=== PATIENT | female | born 1980 | race Caucasian/White ===

== ENCOUNTER 2016-05-03 21:08 | Emergency (ER) | payer OTHER ==
[~2016-05-03] VITALS: Ht 162.6 cm; Wt 82.1 kg
[~2016-05-03 21:08] MED LIST: ANTIVERT 25MG25 MG PO; ATIVAN 0.50.5 MG/TAB PO; ATIVAN0.5 MG PO; AURALGAN EAR DR15 ML OT; BACTRIM DS 8001 TAB PO; BUSPIRONE HCL7.5 MG PO; CALCIUM CARBON500 M1 PO; CEFTIN500 MG PO; CELEXA20 MG PO; CELEXA40 MG PO; CEPHALEXIN500 M1 PO; CIPRO 500MG TA500 MG PO; CITALOPRAM40 MG PO; CLINDAMYCIN PO; CYMBALTA 30MG30 MG PO; DEPAKOTE ER500 MG PO; DESYREL 50MG50 MG PO; DEXILANT60 MG PO; DOXYCYCLINE 10100 MG PO; FLAGYL500 MG PO; FLEXERIL 1010 MG/TAB PO; GABAPENTIN300 MG PO; HYDROCODONE/APAP; KLONOPIN 0.5MG0.5 MG PO; KLONOPIN WAFER0.5 MG PO; LAMICTAL 100MG100 MG PO; LAMICTAL 25MG T25 MG PO; LAMICTAL150 MG PO; LAMICTAL200 MG PO; LEVAQUIN 5500 MG/TA1 PO; LEXAPRO 10MG10 MG PO; LOPRESSOR 550 MG/TAB PO; LORTAB 5/500 501 TAB PO; MERIBIN5 MG PO; NAPROSYN500 MG PO; NEURONTIN300 MG/CAP PO; NORCO 325 MG-51 TAB PO; OMNICEF 300MG300 MG PO; PENICILLIN250 MG PO; PERCOCET 325 MG1 TA2 PO; PHENERGAN 25 TA25 MG PO; PHENERGAN25 MG RC; POTASSIUM99 MG PO; PRENATAL VITAMI1 TA5 PO; PRILOSEC 20MG20 MG PO; PROVENTIL0.09 MG/A1 IH; PYRIDIUM200 M1 PO; RELPAX20 MG PO; TYLENOL 500MG500 MG PO; VALIUM5 MG PO; VIIBRYD10 MG PO; VIT B COMPLEX; VITAMIN D1000 IU PO; VITAMIN D32000 IU PO; WELLBUTRIN PO; XANAX0.25 MG PO; ZOFRAN 4MG T4 MG/TAB PO
[2016-05-03 21:25] VITALS: TEMP 98.6
[2016-05-03] MEDS ORDERED: KLONOPIN WAFE0.25 MG PO (21:54)
[2016-05-03 23:10] VITALS: BP 131/90; PULSE 91
== END 2016-05-03 23:10 | disposition home or self-care (01) ==
LOC: COL.ER 21:08
DX: M54.5 Low back pain (principal)
CPT/HCPCS: J1170; J3010

== ENCOUNTER → 2016-05-10 | Outpatient (CLI) | payer OTHER ==
[~2016-05-10] MED LIST changes: +ALBUTEROL0.83 MG/ML IH; +AMOXICILLIN 50500 MG PO; +CARAFATE 1GM1 G PO; +KLONOPIN WAFE0.25 MG PO; +MAGCITRATE PO; +MIRALAX PA17 GM/Dose PO; +NEB MC; +NEURONTIN600 MG/TAB PO; +PREDNISONE20 MG PO; +PRINIVIL5 MG PO; +PROAIR HFA0.09 MG/AC IH; +PROBIOTICA100 Milli1 PO; +ZITHROMAX Z PA250 MG PO
== END ==
LOC: BHSO 10:07
DX: F31.11 Bipolar disorder, current episode manic without psychotic features, mild (principal)

== ENCOUNTER 2016-05-14 18:23 | Emergency (ER) | payer OTHER ==
[~2016-05-14] VITALS: Ht 162.6 cm; Wt 81.8 kg
[~2016-05-14 18:23] MED LIST changes: -ALBUTEROL0.83 MG/ML IH; -AMOXICILLIN 50500 MG PO; -CARAFATE 1GM1 G PO; -MAGCITRATE PO; -MIRALAX PA17 GM/Dose PO; -NEB MC; -NEURONTIN600 MG/TAB PO; -PREDNISONE20 MG PO; -PRINIVIL5 MG PO; -PROAIR HFA0.09 MG/AC IH; -PROBIOTICA100 Milli1 PO; -ZITHROMAX Z PA250 MG PO
[2016-05-14 18:30] VITALS: TEMP 98.6
[2016-05-14 20:44] VITALS: BP 167/97; PULSE 96
== END 2016-05-14 21:00 | disposition home or self-care (01) ==
LOC: COL.ER 18:23
DX: M54.5 Low back pain (principal); G89.29 Other chronic pain
CPT/HCPCS: J1170; J2405; J2550

== ENCOUNTER → 2016-05-16 | Outpatient (CLI) | payer OTHER ==
[~2016-05-16] MED LIST changes: +ALBUTEROL0.83 MG/ML IH; +AMOXICILLIN 50500 MG PO; +CARAFATE 1GM1 G PO; +MAGCITRATE PO; +MIRALAX PA17 GM/Dose PO; +NEB MC; +NEURONTIN600 MG/TAB PO; +PREDNISONE20 MG PO; +PRINIVIL5 MG PO; +PROAIR HFA0.09 MG/AC IH; +PROBIOTICA100 Milli1 PO; +ZITHROMAX Z PA250 MG PO
== END ==
LOC: BHSO 08:37
DX: F43.10 Post-traumatic stress disorder, unspecified (principal)

== ENCOUNTER → 2016-05-23 | Outpatient (CLI) | payer OTHER | LOC: BHSO 11:13 | DX: F31.81 Bipolar II disorder (principal) ==

== ENCOUNTER → 2016-05-31 | Outpatient (CLI) | payer OTHER | LOC: BHSO 11:19 | DX: F31.31 Bipolar disorder, current episode depressed, mild (principal) ==

== ENCOUNTER 2016-06-06 19:49 | Emergency (ER) | payer OTHER ==
[~2016-06-06] VITALS: Ht 162.6 cm; Wt 81.8 kg
[~2016-06-06 19:49] MED LIST changes: -ALBUTEROL0.83 MG/ML IH; -AMOXICILLIN 50500 MG PO; -CARAFATE 1GM1 G PO; -MAGCITRATE PO; -MIRALAX PA17 GM/Dose PO; -NEB MC; -NEURONTIN600 MG/TAB PO; -PREDNISONE20 MG PO; -PRINIVIL5 MG PO; -PROAIR HFA0.09 MG/AC IH; -PROBIOTICA100 Milli1 PO; -ZITHROMAX Z PA250 MG PO
[2016-06-06 19:55] VITALS: TEMP 98.3
[2016-06-06 20:28] LABS: BASO # 0.1 (0.0-0.2); BASO % 0.4 % (0.0-2.0); EOS # 0.2 (0.0-0.7); EOS % 1.2 % (0-4.0); GRAN # 7.2 (1.4-6.5); GRAN % 58.1 % (42.2-75.2); HEMATOCRIT 45.2 % (37.0-47.0); HEMOGLOBIN 15.4 g/dl (12.5-16.0); LYMPH % 32.1 % (20.0-51.0); MEAN CELL VOLUME 88 fl (80.0-100.0); MEAN CORPUSCULAR HEMOGLOBIN 30 pg (27.0-31.0); MEAN CORPUSCULAR HGB CONC 34 g/dl (33.0-37.0); MEAN PLATELET VOLUME 8.7 fl (7.4-10.4); MONO % 7.9 % (1.7-9.3); PLATELET COUNT 347 K/mm3 (130-400); RED BLOOD COUNT 5.16 M/mm3 (4.10-5.30); REDCELL DISTRIBUTION WIDTH-CV 12.1 % (11.5-14.5); WHITE BLOOD COUNT 12.3 K/mm3 (4.8-10.8)
[2016-06-06 20:38] LABS: ALBUMIN 3.9 gm/dL (3.5-5.0); BILIRUBIN,TOTAL 0.8 mg/dL (0.0-1.0); CALCIUM 8.9 mg/dL (8.4-10.2); CREATININE, serum 0.79 mg/dL (0.52-1.25); POTASSIUM 3.1 mmol/L (3.4-5.0); TOTAL PROTEIN 7.1 gm/dL (6.4-8.2)
[2016-06-06] MEDS ORDERED: PREDNISONE20 MG PO (21:09)
[2016-06-06] MEDS ORDERED: LEVAQUIN 5500 MG/TA1 PO (21:09)
[2016-06-06 21:40] VITALS: BP 150/96; PULSE 99
== END 2016-06-06 21:50 | disposition home or self-care (01) ==
LOC: COL.ER 19:49
PROVIDERS: Family Medicine
DX: J18.9 Pneumonia, unspecified organism (principal); J20.9 Acute bronchitis, unspecified; F17.210 Nicotine dependence, cigarettes, uncomplicated
CPT/HCPCS: J0696; J2405; J2930

== ENCOUNTER 2016-06-08 15:19 | Emergency (ER) | payer OTHER ==
[~2016-06-08] VITALS: Ht 162.6 cm; Wt 81.8 kg
[~2016-06-08 15:19] MED LIST changes: +PREDNISONE20 MG PO
[2016-06-08 15:21] VITALS: TEMP 97.9
[2016-06-08] MEDS ORDERED: PERCOCET 325 MG1 TA2 PO (15:26)
[2016-06-08] MEDS ORDERED: PROAIR HFA0.09 MG/AC IH (15:40)
[2016-06-08 17:43] VITALS: BP 148/95; PULSE 96
[2016-06-08] MEDS ORDERED: NEB MC (17:45)
[2016-06-08] MEDS ORDERED: ALBUTEROL0.83 MG/ML IH (17:45)
== END 2016-06-08 17:55 | disposition home or self-care (01) ==
LOC: COL.ER 15:19
DX: J18.9 Pneumonia, unspecified organism (principal); F17.210 Nicotine dependence, cigarettes, uncomplicated
CPT/HCPCS: J1170; J2405; J7030

== ENCOUNTER → 2016-06-18 | Outpatient (CLI) | payer OTHER ==
[~2016-06-18] MED LIST changes: +ALBUTEROL0.83 MG/ML IH; +AMOXICILLIN 50500 MG PO; +CARAFATE 1GM1 G PO; +MAGCITRATE PO; +MIRALAX PA17 GM/Dose PO; +NEB MC; +NEURONTIN600 MG/TAB PO; +PRINIVIL5 MG PO; +PROAIR HFA0.09 MG/AC IH; +PROBIOTICA100 Milli1 PO; +ZITHROMAX Z PA250 MG PO
== END ==
LOC: BHSO 09:07
DX: F31.81 Bipolar II disorder (principal)

== ENCOUNTER → 2016-06-26 | Outpatient (CLI) | payer OTHER | LOC: BHSO 09:32 | DX: F31.31 Bipolar disorder, current episode depressed, mild (principal) ==

== ENCOUNTER → 2016-07-02 | Outpatient (CLI) | payer OTHER | LOC: BHSO 10:04 | DX: F31.81 Bipolar II disorder (principal) ==

== ENCOUNTER → 2016-07-23 | Outpatient (CLI) | payer OTHER | LOC: BHSO 10:56 | DX: F31.31 Bipolar disorder, current episode depressed, mild (principal) ==

== ENCOUNTER → 2016-08-06 | Outpatient (CLI) | payer OTHER | LOC: BHSO 09:56 | DX: F31.81 Bipolar II disorder (principal) ==

== ENCOUNTER → 2016-08-13 | Outpatient (CLI) | payer OTHER | LOC: BHSO 11:03 | DX: F31.81 Bipolar II disorder (principal) ==

== ENCOUNTER 2016-08-29 15:33 | Emergency (ER) | payer OTHER ==
[~2016-08-29] VITALS: Ht 162.6 cm; Wt 84.1 kg
[~2016-08-29 15:33] MED LIST changes: -AMOXICILLIN 50500 MG PO; -CARAFATE 1GM1 G PO; -MAGCITRATE PO; -MIRALAX PA17 GM/Dose PO; -NEURONTIN600 MG/TAB PO; -PRINIVIL5 MG PO; -PROBIOTICA100 Milli1 PO; -ZITHROMAX Z PA250 MG PO
[2016-08-29 15:39] VITALS: TEMP 98
[2016-08-29] MEDS ORDERED: ZITHROMAX Z PA250 MG PO (16:51)
[2016-08-29] MEDS ORDERED: PREDNISONE20 MG PO (16:51)
[2016-08-29 17:01] VITALS: BP 154/91; PULSE 81
== END 2016-08-29 17:01 | disposition home or self-care (01) ==
LOC: COL.ER 15:33
DX: J20.9 Acute bronchitis, unspecified (principal); F17.210 Nicotine dependence, cigarettes, uncomplicated; F31.9 Bipolar disorder, unspecified; F60.3 Borderline personality disorder

== ENCOUNTER 2016-09-13 01:24 | Emergency (ER) | payer OTHER ==
[~2016-09-13] VITALS: Ht 162.6 cm; Wt 84.1 kg
[~2016-09-13 01:24] MED LIST changes: +ZITHROMAX Z PA250 MG PO
[2016-09-13 01:27] VITALS: BP 164/109; TEMP 98.5
[2016-09-13] MEDS ORDERED: AMOXICILLIN 50500 MG PO (01:50)
[2016-09-13 02:05] VITALS: PULSE 87
== END 2016-09-13 02:08 | disposition home or self-care (01) ==
LOC: COL.ER 01:24
DX: K08.89 Other specified disorders of teeth and supporting structures (principal); H92.03 Otalgia, bilateral; R51 Headache

== ENCOUNTER 2016-10-03 09:22 | Emergency (ER) | payer OTHER ==
[~2016-10-03] VITALS: Ht 162.6 cm; Wt 81.8 kg
[~2016-10-03 09:22] MED LIST changes: +AMOXICILLIN 50500 MG PO
[2016-10-03 09:24] VITALS: PULSE 108; TEMP 98.1
[2016-10-03 10:18] LABS: BASO % 0.4 % (0.0-2.0); EOS # 0.1 (0.0-0.7); EOS % 1.6 % (0-4.0); GRAN % 62.8 % (42.2-75.2); HEMATOCRIT 44.8 % (37.0-47.0); HEMOGLOBIN 15.6 g/dl (12.5-16.0); LYMPH # 2.3 (1.2-3.4); LYMPH % 28.6 % (20.0-51.0); MEAN CELL VOLUME 86 fl (80.0-100.0); MEAN CORPUSCULAR HEMOGLOBIN 30 pg (27.0-31.0); MEAN CORPUSCULAR HGB CONC 35 g/dl (33.0-37.0); MONO # 0.5 (0.1-0.6); MONO % 6.3 % (1.7-9.3); PLATELET COUNT 338 K/mm3 (130-400); RED BLOOD COUNT 5.23 M/mm3 (4.10-5.30); REDCELL DISTRIBUTION WIDTH-CV 11.7 % (11.5-14.5)
[2016-10-03 10:29] LABS: ADJUSTED CALCIUM 9.2 mg/dL (8.4-10.2); ALANINE AMINOTRANSFERASE 22 U/L (9-52); ALBUMIN 4.3 gm/dL (3.5-5.0); ALKALINE PHOSPHATASE 60 U/L (50-136); ANION GAP 8 mmol/L (7-16); BILIRUBIN,TOTAL 0.6 mg/dL (0.0-1.0); BLOOD UREA NITROGEN 6 mg/dL (7-17); CALCIUM 9.4 mg/dL (8.4-10.2); CARBON DIOXIDE 28 mmol/L (22-30); CHLORIDE 103 mmol/L (98-107); GLUCOSE 86 mg/dL (74-106); LIPASE 76 U/L (23-300); POTASSIUM 3.8 mmol/L (3.4-5.0); SODIUM 138 mmol/L (137-145); TOTAL PROTEIN 7.5 gm/dL (6.4-8.2)
[2016-10-03 10:36] LABS: C-REACTIVE PROTEIN < 0.5 mg/dL (0.0-0.9)
[2016-10-03] MEDS ORDERED: NORCO 325 MG-51 TAB PO (13:00)
[2016-10-03 13:27] VITALS: BP 137/98
== END 2016-10-03 13:28 | disposition home or self-care (01) ==
LOC: COL.ER 09:22
PROVIDERS: Nurse Practitioner
DX: R10.11 Right upper quadrant pain (principal); F41.9 Anxiety disorder, unspecified; F31.9 Bipolar disorder, unspecified
CPT/HCPCS: J1885; J2405; J3010; J7030

== ENCOUNTER 2016-10-15 01:46 | Emergency (ER) | payer OTHER ==
[~2016-10-15] VITALS: Ht 162.6 cm; Wt 81.8 kg
[2016-10-15 01:52] VITALS: TEMP 98.7
[2016-10-15] MEDS ORDERED: PROBIOTICA100 Milli1 PO (01:59)
[2016-10-15 02:33] LABS: BASO # 0.1 (0.0-0.2); BASO % 0.5 % (0.0-2.0); EOS # 0.2 (0.0-0.7); EOS % 1.4 % (0-4.0); GRAN % 62.9 % (42.2-75.2); HEMATOCRIT 44.6 % (37.0-47.0); HEMOGLOBIN 15.7 g/dl (12.5-16.0); LYMPH # 3.4 (1.2-3.4); LYMPH % 27.2 % (20.0-51.0); MEAN CELL VOLUME 86 fl (80.0-100.0); MEAN CORPUSCULAR HEMOGLOBIN 30 pg (27.0-31.0); MEAN CORPUSCULAR HGB CONC 35 g/dl (33.0-37.0); MEAN PLATELET VOLUME 8.7 fl (7.4-10.4); MONO % 7.8 % (1.7-9.3); PLATELET COUNT 343 K/mm3 (130-400); RED BLOOD COUNT 5.21 M/mm3 (4.10-5.30); REDCELL DISTRIBUTION WIDTH-CV 11.8 % (11.5-14.5); WHITE BLOOD COUNT 12.6 K/mm3 (4.8-10.8)
[2016-10-15 02:45] LABS: ADJUSTED CALCIUM 9.2 mg/dL (8.4-10.2); ALANINE AMINOTRANSFERASE 35 U/L (9-52); ALBUMIN 4.3 gm/dL (3.5-5.0); ALKALINE PHOSPHATASE 56 U/L (50-136); ANION GAP 10 mmol/L (7-16); BILIRUBIN,TOTAL 0.6 mg/dL (0.0-1.0); BLOOD UREA NITROGEN 7 mg/dL (7-17); CALCIUM 9.4 mg/dL (8.4-10.2); CARBON DIOXIDE 25 mmol/L (22-30); CHLORIDE 103 mmol/L (98-107); CREATININE, serum 0.79 mg/dL (0.52-1.25); GLUCOSE 87 mg/dL (74-106); LIPASE 108 U/L (23-300); POTASSIUM 3.5 mmol/L (3.4-5.0); SODIUM 138 mmol/L (137-145); TOTAL PROTEIN 7.7 gm/dL (6.4-8.2)
[2016-10-15 02:47] LABS: C-REACTIVE PROTEIN < 0.5 mg/dL (0.0-0.9)
[2016-10-15 02:58] LABS: PH 5 (5-8); URINE APPEARANCE Clear; URINE BACTERIA Rare /hpf; URINE BILIRUBIN Negative (NEGATIVE); URINE BLOOD Negative (NEGATIVE); URINE COLOR Yellow; URINE GLUCOSE Negative (NEGATIVE); URINE KETONE Negative (NEGATIVE); URINE UROBILINOGEN Negative (NEGATIVE); URINE WBC 0-2 /hpf
[2016-10-15] MEDS ORDERED: MIRALAX PA17 GM/Dose PO (03:47)
[2016-10-15 04:21] VITALS: BP 160/100; PULSE 91
== END 2016-10-15 04:21 | disposition home or self-care (01) ==
LOC: COL.ER 01:46
PROVIDERS: Emergency Medicine
DX: R10.11 Right upper quadrant pain (principal); R10.13 Epigastric pain; R11.0 Nausea; R63.0 Anorexia; R10.31 Right lower quadrant pain; F32.9 Major depressive disorder, single episode, unspecified
CPT/HCPCS: J1170; J2405; J7030; Q9967

== ENCOUNTER 2016-10-21 20:00 | Emergency (ER) | payer OTHER ==
[~2016-10-21] VITALS: Ht 162.6 cm; Wt 81.8 kg
[~2016-10-21 20:00] MED LIST changes: +MIRALAX PA17 GM/Dose PO; +PROBIOTICA100 Milli1 PO
[2016-10-21 20:03] VITALS: BP 160/102; TEMP 98.9
[2016-10-21 20:39] LABS: BASO % 0.4 % (0.0-2.0); EOS # 0.2 (0.0-0.7); EOS % 2.5 % (0-4.0); GRAN # 5.4 (1.4-6.5); GRAN % 58.5 % (42.2-75.2); HEMATOCRIT 47.2 % (37.0-47.0); HEMOGLOBIN 16.4 g/dl (12.5-16.0); MEAN CELL VOLUME 86 fl (80.0-100.0); MEAN CORPUSCULAR HEMOGLOBIN 30 pg (27.0-31.0); MEAN CORPUSCULAR HGB CONC 35 g/dl (33.0-37.0); MEAN PLATELET VOLUME 8.6 fl (7.4-10.4); MONO # 0.6 (0.1-0.6); MONO % 6.3 % (1.7-9.3); PLATELET COUNT 362 K/mm3 (130-400); RED BLOOD COUNT 5.49 M/mm3 (4.10-5.30); REDCELL DISTRIBUTION WIDTH-CV 11.6 % (11.5-14.5); WHITE BLOOD COUNT 9.3 K/mm3 (4.8-10.8)
[2016-10-21 20:54] LABS: ADJUSTED CALCIUM 9.3 mg/dL (8.4-10.2); ALANINE AMINOTRANSFERASE 31 U/L (9-52); ALBUMIN 4.6 gm/dL (3.5-5.0); ALKALINE PHOSPHATASE 59 U/L (50-136); ANION GAP 14 mmol/L (7-16); BILIRUBIN,TOTAL 0.8 mg/dL (0.0-1.0); BLOOD UREA NITROGEN 7 mg/dL (7-17); CALCIUM 9.8 mg/dL (8.4-10.2); CARBON DIOXIDE 25 mmol/L (22-30); CHLORIDE 101 mmol/L (98-107); CREATININE, serum 0.73 mg/dL (0.52-1.25); GLUCOSE 88 mg/dL (74-106); LIPASE 101 U/L (23-300); POTASSIUM 3.8 mmol/L (3.4-5.0); SODIUM 140 mmol/L (137-145); TOTAL PROTEIN 8.2 gm/dL (6.4-8.2)
[2016-10-21 20:56] LABS: C-REACTIVE PROTEIN < 0.5 mg/dL (0.0-0.9)
[2016-10-21 21:26] LABS: PH 7 (5-8); SQUAMOUS EPITHELIAL 0-2 /hpf; URINE APPEARANCE Clear; URINE BACTERIA None Seen /hpf; URINE BILIRUBIN Negative (NEGATIVE); URINE BLOOD 1+ (NEGATIVE); URINE COLOR Straw; URINE GLUCOSE Negative (NEGATIVE); URINE KETONE Negative (NEGATIVE); URINE RBC None Seen /hpf; URINE UROBILINOGEN Negative (NEGATIVE); URINE WBC None Seen /hpf
[2016-10-21] MEDS ORDERED: CARAFATE 1GM1 G PO (21:54)
[2016-10-21 22:07] VITALS: PULSE 87
== END 2016-10-21 22:11 | disposition home or self-care (01) ==
LOC: COL.ER 20:00
PROVIDERS: Emergency Medicine
DX: R10.11 Right upper quadrant pain (principal); F31.9 Bipolar disorder, unspecified
CPT/HCPCS: J1170; J2550; J7030

== ENCOUNTER → 2016-10-25 | Outpatient (CLI) | payer OTHER ==
[~2016-10-25] MED LIST changes: +CARAFATE 1GM1 G PO; +MAGCITRATE PO; +NEURONTIN600 MG/TAB PO; +PRINIVIL5 MG PO
== END ==
LOC: COL.RAD 07:09
DX: R10.11 Right upper quadrant pain (principal)
CPT/HCPCS: A9537

== ENCOUNTER 2016-10-31 04:47 | Emergency (ER) | payer OTHER ==
[~2016-10-31] VITALS: Ht 162.6 cm; Wt 79.5 kg
[~2016-10-31 04:47] MED LIST changes: -MAGCITRATE PO; -NEURONTIN600 MG/TAB PO; -PRINIVIL5 MG PO
[2016-10-31] MEDS ORDERED: MAGCITRATE PO (04:57)
[2016-10-31 04:58] VITALS: TEMP 99.1
[2016-10-31] MEDS ORDERED: NEURONTIN600 MG/TAB PO (04:58)
[2016-10-31] MEDS ORDERED: NORCO 325 MG-51 TAB PO (04:58)
[2016-10-31 06:17] LABS: BASO # 0.1 (0.0-0.2); BASO % 0.5 % (0.0-2.0); EOS # 0.3 (0.0-0.7); EOS % 2.7 % (0-4.0); GRAN # 5.9 (1.4-6.5); GRAN % 59.1 % (42.2-75.2); HEMATOCRIT 44.3 % (37.0-47.0); HEMOGLOBIN 15.5 g/dl (12.5-16.0); LYMPH % 29.8 % (20.0-51.0); MEAN CELL VOLUME 86 fl (80.0-100.0); MEAN CORPUSCULAR HEMOGLOBIN 30 pg (27.0-31.0); MEAN CORPUSCULAR HGB CONC 35 g/dl (33.0-37.0); MEAN PLATELET VOLUME 8.9 fl (7.4-10.4); MONO # 0.8 (0.1-0.6); MONO % 7.5 % (1.7-9.3); PLATELET COUNT 388 K/mm3 (130-400); RED BLOOD COUNT 5.14 M/mm3 (4.10-5.30); REDCELL DISTRIBUTION WIDTH-CV 11.8 % (11.5-14.5)
[2016-10-31 06:29] LABS: ADJUSTED CALCIUM 8.9 mg/dL (8.4-10.2); ALBUMIN 4.5 gm/dL (3.5-5.0); BILIRUBIN,TOTAL 0.6 mg/dL (0.0-1.0); CALCIUM 9.3 mg/dL (8.4-10.2); CREATININE, serum 0.68 mg/dL (0.52-1.25); MAGNESIUM 1.8 mg/dL (1.6-2.3); PHOSPHOROUS 3.1 mg/dL (2.5-4.5); POTASSIUM 3.5 mmol/L (3.4-5.0); TOTAL PROTEIN 7.7 gm/dL (6.4-8.2)
[2016-10-31 08:27] VITALS: BP 127/86; PULSE 99
== END 2016-10-31 08:29 | disposition home or self-care (01) ==
LOC: COL.ER 04:47
PROVIDERS: Emergency Medicine
DX: R51 Headache (principal); F31.9 Bipolar disorder, unspecified; F17.210 Nicotine dependence, cigarettes, uncomplicated
CPT/HCPCS: J1630; J2060; J2405; J7030

== ENCOUNTER 2016-11-12 20:18 | Emergency (ER) | payer OTHER ==
[~2016-11-12] VITALS: Ht 162.6 cm; Wt 79.5 kg
[~2016-11-12 20:18] MED LIST changes: +MAGCITRATE PO; +NEURONTIN600 MG/TAB PO
[2016-11-12 20:26] VITALS: TEMP 98.5
[2016-11-12 20:58] LABS: PH 6 (5-8); URINE APPEARANCE Clear; URINE BACTERIA None Seen /hpf; URINE BILIRUBIN Negative (NEGATIVE); URINE BLOOD Negative (NEGATIVE); URINE COLOR Yellow; URINE GLUCOSE Negative (NEGATIVE); URINE KETONE Negative (NEGATIVE); URINE RBC 0-2 /hpf; URINE WBC 0-2 /hpf
[2016-11-12 21:04] LABS: BASO # 0.1 (0.0-0.2); BASO % 0.5 % (0.0-2.0); EOS # 0.2 (0.0-0.7); EOS % 2.2 % (0-4.0); GRAN # 5.3 (1.4-6.5); GRAN % 55.5 % (42.2-75.2); HEMATOCRIT 45.8 % (37.0-47.0); HEMOGLOBIN 15.6 g/dl (12.5-16.0); LYMPH # 3.3 (1.2-3.4); LYMPH % 34.3 % (20.0-51.0); MEAN CELL VOLUME 87 fl (80.0-100.0); MEAN CORPUSCULAR HEMOGLOBIN 30 pg (27.0-31.0); MEAN CORPUSCULAR HGB CONC 34 g/dl (33.0-37.0); MEAN PLATELET VOLUME 8.7 fl (7.4-10.4); MONO # 0.7 (0.1-0.6); MONO % 7.3 % (1.7-9.3); PLATELET COUNT 371 K/mm3 (130-400); RED BLOOD COUNT 5.24 M/mm3 (4.10-5.30); REDCELL DISTRIBUTION WIDTH-CV 11.9 % (11.5-14.5); WHITE BLOOD COUNT 9.5 K/mm3 (4.8-10.8)
[2016-11-12] MEDS ORDERED: PRINIVIL5 MG PO (21:06)
[2016-11-12 21:17] LABS: ALANINE AMINOTRANSFERASE 29 U/L (9-52); ALBUMIN 4.4 gm/dL (3.5-5.0); ALKALINE PHOSPHATASE 61 U/L (50-136); ANION GAP 9 mmol/L (7-16); BILIRUBIN,TOTAL 0.6 mg/dL (0.0-1.0); BLOOD UREA NITROGEN 7 mg/dL (7-17); CALCIUM 9.3 mg/dL (8.4-10.2); CARBON DIOXIDE 26 mmol/L (22-30); CHLORIDE 102 mmol/L (98-107); CREATININE, serum 0.68 mg/dL (0.52-1.25); GLUCOSE 80 mg/dL (74-106); LIPASE 109 U/L (23-300); SODIUM 138 mmol/L (137-145)
[2016-11-12 21:18] LABS: C-REACTIVE PROTEIN < 0.5 mg/dL (0.0-0.9)
[2016-11-12 22:35] VITALS: BP 142/93; PULSE 82
== END 2016-11-12 22:50 | disposition home or self-care (01) ==
LOC: COL.ER 20:18
PROVIDERS: Nurse Practitioner
DX: R10.11 Right upper quadrant pain (principal); R11.2 Nausea with vomiting, unspecified; R63.0 Anorexia; F32.9 Major depressive disorder, single episode, unspecified; F41.9 Anxiety disorder, unspecified; G89.29 Other chronic pain
CPT/HCPCS: J1170; J2550; J7030

== ENCOUNTER → 2016-11-21 | Outpatient (CLI) | payer OTHER ==
[~2016-11-21] MED LIST changes: +PRINIVIL5 MG PO
== END ==
LOC: BHSO 09:02
DX: F43.10 Post-traumatic stress disorder, unspecified (principal)

== ENCOUNTER → 2016-12-04 | Outpatient (CLI) | payer OTHER ==
[~2016-12-04] MED LIST changes: +ATARAX50 MG PO; +CATAPRES 0.1MG0.1 MG PO; +CILOXAN 5 ML5 ML OD; +CLEOCIN HC150 MG/CAP PO; +CYMBALTA 60MG60 MG PO; +FIORINAL W/CODE1 CA2 PO; +HCTZ12.5TAB PO; +HORIZANT600 MG PO; +LIDODERM 5% PATC1 EA TP; +MEDROL 4MG DOSPA4 MG PO; +MOTRIN 800800 MG/TAB PO; +VOLTAREN 75 DR75 MG PO
== END ==
LOC: BHSO 13:55
DX: F31.32 Bipolar disorder, current episode depressed, moderate (principal)

== ENCOUNTER 2016-12-07 11:47 | Emergency (ER) | payer OTHER ==
[~2016-12-07 11:47] MED LIST changes: -ATARAX50 MG PO; -CATAPRES 0.1MG0.1 MG PO; -CILOXAN 5 ML5 ML OD; -CLEOCIN HC150 MG/CAP PO; -CYMBALTA 60MG60 MG PO; -FIORINAL W/CODE1 CA2 PO; -HCTZ12.5TAB PO; -HORIZANT600 MG PO; -LIDODERM 5% PATC1 EA TP; -MEDROL 4MG DOSPA4 MG PO; -MOTRIN 800800 MG/TAB PO; -VOLTAREN 75 DR75 MG PO
[2016-12-07 11:52] VITALS: BP 134/85; PULSE 114; TEMP 99
[2016-12-07] MEDS ORDERED: KLONOPIN WAFE0.25 MG PO (11:58)
[2016-12-07] MEDS ORDERED: CEPHALEXIN500 M1 PO (12:19)
[2016-12-07] MEDS ORDERED: NORCO 325 MG-51 TAB PO (12:19)
[2017-04-22] MEDS ORDERED: CLEOCIN HC150 MG/CAP PO (20:46)
[2017-04-22] MEDS ORDERED: PERCOCET 325 MG1 TA2 PO (20:46)
== END 2016-12-07 12:37 | disposition home or self-care (01) ==
LOC: COL.ER 11:47
DX: K91.89 Other postprocedural complications and disorders of digestive system (principal); F31.9 Bipolar disorder, unspecified; F41.9 Anxiety disorder, unspecified; Z90.49 Acquired absence of other specified parts of digestive tract

== ENCOUNTER → 2016-12-24 | Outpatient (CLI) | payer OTHER | LOC: BHSO 13:11 | DX: F31.4 Bipolar disorder, current episode depressed, severe, without psychotic features (principal) ==

== ENCOUNTER → 2017-01-02 | Outpatient (CLI) | payer OTHER | LOC: BHSO 08:59 | DX: F31.11 Bipolar disorder, current episode manic without psychotic features, mild (principal) ==

== ENCOUNTER 2017-01-08 15:03 | Emergency (ER) | payer OTHER ==
[~2017-01-08] VITALS: Ht 162.6 cm; Wt 77.3 kg
[2017-01-08 15:06] VITALS: TEMP 99
[2017-01-08 16:21] LABS: PH 6 (5-8); URINE BACTERIA None Seen /hpf; URINE BILIRUBIN Positive (NEGATIVE); URINE BLOOD Negative (NEGATIVE); URINE COLOR Yellow; URINE GLUCOSE Negative (NEGATIVE); URINE KETONE Trace (NEGATIVE); URINE RBC 0-2 /hpf; URINE UROBILINOGEN >=4.0 mg/dL (NEGATIVE)
[2017-01-08 16:22] LABS: URINE APPEARANCE Hazy
[2017-01-08 16:41] VITALS: BP 132/81; PULSE 99
== END 2017-01-08 16:48 | disposition home or self-care (01) ==
LOC: COL.ER 15:03
PROVIDERS: Emergency Medicine
DX: M54.5 Low back pain (principal); I10 Essential (primary) hypertension; F17.210 Nicotine dependence, cigarettes, uncomplicated
CPT/HCPCS: J1170; J2550

== ENCOUNTER 2017-01-10 23:18 | Emergency (ER) | payer OTHER ==
[~2017-01-10] VITALS: Ht 162.6 cm; Wt 74.1 kg
[2017-01-10 23:24] VITALS: TEMP 98.1
[2017-01-11 01:14] VITALS: BP 147/97; PULSE 92
== END 2017-01-11 01:16 | disposition home or self-care (01) ==
LOC: COL.ER 23:18
DX: G89.29 Other chronic pain (principal); M54.9 Dorsalgia, unspecified; R19.7 Diarrhea, unspecified; R11.2 Nausea with vomiting, unspecified; F17.210 Nicotine dependence, cigarettes, uncomplicated
CPT/HCPCS: J2550

== ENCOUNTER → 2017-02-11 | Outpatient (CLI) | payer OTHER | LOC: BHSO 13:04 | DX: F31.81 Bipolar II disorder (principal) ==

== ENCOUNTER 2017-02-26 15:11 | Emergency (ER) | payer OTHER ==
[~2017-02-26] VITALS: Ht 162.6 cm; Wt 72.7 kg
[2017-02-26] MEDS ORDERED: PHENERGAN 25 TA25 MG PO (15:48)
[2017-02-26 16:54] VITALS: BP 155/83; PULSE 103; TEMP 98.8
== END 2017-02-26 16:55 | disposition home or self-care (01) ==
LOC: COL.ER 15:11
DX: G43.909 Migraine, unspecified, not intractable, without status migrainosus (principal); M54.9 Dorsalgia, unspecified; G89.29 Other chronic pain; F17.210 Nicotine dependence, cigarettes, uncomplicated
CPT/HCPCS: J2550

== ENCOUNTER → 2017-03-25 | Outpatient (CLI) | payer OTHER | LOC: BHSO 09:07 | DX: F31.81 Bipolar II disorder (principal) ==

== ENCOUNTER → 2017-04-17 | Outpatient (CLI) | payer OTHER ==
[~2017-04-17] MED LIST changes: +CLEOCIN HC150 MG/CAP PO
== END ==
LOC: BHSO 09:06
DX: F31.81 Bipolar II disorder (principal)

== ENCOUNTER → 2017-04-24 | Outpatient (CLI) | payer OTHER | LOC: BHSO 09:05 | DX: F31.31 Bipolar disorder, current episode depressed, mild (principal) ==

== ENCOUNTER → 2017-05-01 | Outpatient (CLI) | payer OTHER | LOC: BHSO 09:09 | DX: F31.31 Bipolar disorder, current episode depressed, mild (principal) ==

== ENCOUNTER 2017-05-07 10:47 | Emergency (ER) | payer OTHER ==
[~2017-05-07] VITALS: Ht 162.6 cm; Wt 81.8 kg
[2017-05-07 10:53] VITALS: TEMP 99.2
[2017-05-07 12:30] LABS: COLLECTION METHOD CLEAN CATCH
[2017-05-07 12:38] LABS: PH 7 (5-8); SQUAMOUS EPITHELIAL 0-2 /hpf; URINE APPEARANCE Clear; URINE BACTERIA None Seen /hpf; URINE BILIRUBIN Negative (NEGATIVE); URINE BLOOD Negative (NEGATIVE); URINE COLOR Straw; URINE GLUCOSE Negative (NEGATIVE); URINE KETONE Negative (NEGATIVE); URINE LEUKOCYTE ESTERASE Negative (NEGATIVE); URINE NITRATE Negative (NEGATIVE); URINE PROTEIN(semi-quant) Negative (NEGATIVE); URINE RBC None Seen /hpf; URINE UROBILINOGEN Negative (NEGATIVE)
[2017-05-07] MEDS ORDERED: FLEXERIL 1010 MG/TAB PO (14:34)
[2017-05-07] MEDS ORDERED: MEDROL 4MG DOSPA4 MG PO (14:49)
[2017-05-07 15:00] VITALS: BP 143/100; PULSE 90
== END 2017-05-07 15:00 | disposition home or self-care (01) ==
LOC: COL.ER 10:47
PROVIDERS: Family Medicine
DX: M48.061 Spinal stenosis, lumbar region without neurogenic claudication (principal)
CPT/HCPCS: J1170; J1885; J2060; J2550

== ENCOUNTER → 2017-05-13 | Outpatient (CLI) | payer OTHER ==
[~2017-05-13] MED LIST changes: +MEDROL 4MG DOSPA4 MG PO
== END ==
LOC: BHSO 10:53
DX: F31.31 Bipolar disorder, current episode depressed, mild (principal)

== ENCOUNTER → 2017-05-29 | Outpatient (CLI) | payer OTHER | LOC: BHSO 09:14 | DX: F31.31 Bipolar disorder, current episode depressed, mild (principal) ==

== ENCOUNTER 2017-06-10 02:54 | Emergency (ER) | payer OTHER ==
[~2017-06-10] VITALS: Ht 162.6 cm; Wt 79.5 kg
[2017-06-10 03:04] VITALS: TEMP 98.6
[2017-06-10] MEDS ORDERED: CYMBALTA 30MG30 MG PO (03:10)
[2017-06-10] MEDS ORDERED: CYMBALTA 60MG60 MG PO (03:11)
[2017-06-10 03:22] LABS: BASO # 0.1 (0.0-0.2); BASO % 0.7 % (0.0-2.0); EOS # 0.5 (0.0-0.7); EOS % 3.5 % (0-4.0); GRAN # 9.2 (1.4-6.5); HEMATOCRIT 46.3 % (37.0-47.0); HEMOGLOBIN 15.9 g/dl (12.5-16.0); LYMPH # 3.5 (1.2-3.4); MEAN CELL VOLUME 87 fl (80.0-100.0); MEAN CORPUSCULAR HEMOGLOBIN 30 pg (27.0-31.0); MEAN CORPUSCULAR HGB CONC 34 g/dl (33.0-37.0); MEAN PLATELET VOLUME 8.5 fl (7.4-10.4); MONO # 1.1 (0.1-0.6); MONO % 7.5 % (1.7-9.3); PLATELET COUNT 399 K/mm3 (130-400); REDCELL DISTRIBUTION WIDTH-CV 11.8 % (11.5-14.5)
[2017-06-10 03:23] LABS: INR 0.9 (0.8-3.0); PROTHROMBIN TIME 10.7 SECONDS (9.7-12.8)
[2017-06-10 03:28] LABS: ALANINE AMINOTRANSFERASE 48 U/L (9-52); ALBUMIN 4.5 gm/dL (3.5-5.0); ALKALINE PHOSPHATASE 79 U/L (50-136); ANION GAP 12 mmol/L (7-16); AST,SGOT 36 U/L (15-37); BILIRUBIN,TOTAL 0.3 mg/dL (0.0-1.0); BLOOD UREA NITROGEN 6 mg/dL (7-17); CALCIUM 8.9 mg/dL (8.4-10.2); CARBON DIOXIDE 29 mmol/L (22-30); CHLORIDE 103 mmol/L (98-107); CREATININE, serum 0.82 mg/dL (0.52-1.25); GLUCOSE 99 mg/dL (74-106); POTASSIUM 3.4 mmol/L (3.4-5.0); SODIUM 144 mmol/L (137-145); TOTAL PROTEIN 7.8 gm/dL (6.4-8.2)
[2017-06-10 03:38] LABS: TROPONIN-I < 0.012 ng/mL (0.000-0.034)
[2017-06-10 04:45] VITALS: BP 151/101; PULSE 93
== END 2017-06-10 04:50 | disposition home or self-care (01) ==
LOC: COL.ER 02:54
PROVIDERS: Emergency Medicine
DX: I10 Essential (primary) hypertension (principal); R07.9 Chest pain, unspecified; G43.909 Migraine, unspecified, not intractable, without status migrainosus; F17.210 Nicotine dependence, cigarettes, uncomplicated; F12.90 Cannabis use, unspecified, uncomplicated; Z90.49 Acquired absence of other specified parts of digestive tract
CPT/HCPCS: J1885; J3010

== ENCOUNTER 2017-06-16 22:00 | Emergency (ER) | payer OTHER ==
[~2017-06-16] VITALS: Ht 162.6 cm; Wt 83.1 kg
[~2017-06-16 22:00] MED LIST changes: +CYMBALTA 60MG60 MG PO
[2017-06-16 22:06] VITALS: TEMP 98.3
[2017-06-16] MEDS ORDERED: MOTRIN 800800 MG/TAB PO (22:30)
[2017-06-16] MEDS ORDERED: FIORINAL W/CODE1 CA2 PO (22:30)
[2017-06-16 23:03] LABS: COLLECTION METHOD CLEAN CATCH
[2017-06-16 23:09] LABS: MUCOUS Present /lpf; PH 6 (5-8); URINE APPEARANCE Hazy; URINE BACTERIA None Seen /hpf; URINE BILIRUBIN Negative (NEGATIVE); URINE BLOOD Negative (NEGATIVE); URINE COLOR Yellow; URINE GLUCOSE Negative (NEGATIVE); URINE KETONE Negative (NEGATIVE); URINE LEUKOCYTE ESTERASE Negative (NEGATIVE); URINE NITRATE Negative (NEGATIVE); URINE PROTEIN(semi-quant) Negative (NEGATIVE); URINE UROBILINOGEN Negative (NEGATIVE)
[2017-06-16] MEDS ORDERED: CATAPRES 0.1MG0.1 MG PO (23:22)
[2017-06-16 23:30] VITALS: BP 168/107; PULSE 80
== END 2017-06-16 23:35 | disposition home or self-care (01) ==
LOC: COL.ER 22:00
PROVIDERS: Emergency Medicine
DX: G43.909 Migraine, unspecified, not intractable, without status migrainosus (principal); J02.9 Acute pharyngitis, unspecified; I10 Essential (primary) hypertension; J45.909 Unspecified asthma, uncomplicated; F32.9 Major depressive disorder, single episode, unspecified; F41.9 Anxiety disorder, unspecified; F17.210 Nicotine dependence, cigarettes, uncomplicated; F12.90 Cannabis use, unspecified, uncomplicated; Z90.49 Acquired absence of other specified parts of digestive tract
CPT/HCPCS: J1885; J2550

== ENCOUNTER 2017-06-19 18:24 | Emergency (ER) | payer OTHER ==
[~2017-06-19] VITALS: Ht 162.6 cm; Wt 81.8 kg
[~2017-06-19 18:24] MED LIST changes: +CATAPRES 0.1MG0.1 MG PO; +FIORINAL W/CODE1 CA2 PO; +MOTRIN 800800 MG/TAB PO
[2017-06-19 18:26] VITALS: TEMP 99.2
[2017-06-19 19:02] LABS: BASO # 0.1 (0.0-0.2); BASO % 0.5 % (0.0-2.0); EOS # 0.3 (0.0-0.7); EOS % 3.2 % (0-4.0); GRAN # 5.6 (1.4-6.5); GRAN % 59.8 % (42.2-75.2); HEMATOCRIT 43.8 % (37.0-47.0); HEMOGLOBIN 15.1 g/dl (12.5-16.0); LYMPH # 2.7 (1.2-3.4); MEAN CELL VOLUME 88 fl (80.0-100.0); MEAN CORPUSCULAR HEMOGLOBIN 30 pg (27.0-31.0); MEAN CORPUSCULAR HGB CONC 35 g/dl (33.0-37.0); MEAN PLATELET VOLUME 8.7 fl (7.4-10.4); MONO # 0.7 (0.1-0.6); MONO % 7.3 % (1.7-9.3); PLATELET COUNT 390 K/mm3 (130-400); REDCELL DISTRIBUTION WIDTH-CV 11.8 % (11.5-14.5)
[2017-06-19 19:06] LABS: ALANINE AMINOTRANSFERASE 39 U/L (9-52); ALKALINE PHOSPHATASE 65 U/L (50-136); ANION GAP 13 mmol/L (7-16); AST,SGOT 21 U/L (15-37); BILIRUBIN,TOTAL 0.3 mg/dL (0.0-1.0); BLOOD UREA NITROGEN 4 mg/dL (7-17); CALCIUM 9.1 mg/dL (8.4-10.2); CARBON DIOXIDE 26 mmol/L (22-30); CHLORIDE 104 mmol/L (98-107); GLUCOSE 87 mg/dL (74-106); POTASSIUM 3.6 mmol/L (3.4-5.0); SODIUM 143 mmol/L (137-145); TOTAL PROTEIN 7.4 gm/dL (6.4-8.2)
[2017-06-19 19:17] LABS: TROPONIN-I < 0.012 ng/mL (0.000-0.034)
[2017-06-19] MEDS ORDERED: HCTZ12.5TAB PO (19:40)
[2017-06-19 19:45] LABS: COLLECTION METHOD CLEAN CATCH
[2017-06-19 19:52] LABS: PH 7 (5-8); SQUAMOUS EPITHELIAL 0-2 /hpf; URINE APPEARANCE Clear; URINE BACTERIA None Seen /hpf; URINE BILIRUBIN Negative (NEGATIVE); URINE BLOOD Negative (NEGATIVE); URINE COLOR Straw; URINE GLUCOSE Negative (NEGATIVE); URINE KETONE Negative (NEGATIVE); URINE LEUKOCYTE ESTERASE Negative (NEGATIVE); URINE NITRATE Negative (NEGATIVE); URINE PROTEIN(semi-quant) Negative (NEGATIVE); URINE RBC 0-2 /hpf; URINE UROBILINOGEN Negative (NEGATIVE)
[2017-06-19 19:59] LABS: TRICYCLIC ANTIDEPRESS URINE NEGATIVE
[2017-06-19 20:48] VITALS: BP 148/89; PULSE 91
== END 2017-06-19 20:50 | disposition home or self-care (01) ==
LOC: COL.ER 18:24
PROVIDERS: Emergency Medicine
DX: I10 Essential (primary) hypertension (principal); G89.29 Other chronic pain; R51 Headache; M54.5 Low back pain; R07.9 Chest pain, unspecified
CPT/HCPCS: J1630; J1885; J2060; J2405; J7030

== ENCOUNTER → 2017-06-26 | Outpatient (CLI) | payer OTHER ==
[~2017-06-26] MED LIST changes: +HCTZ12.5TAB PO
== END ==
LOC: BHSO 08:57
DX: F31.31 Bipolar disorder, current episode depressed, mild (principal)

== ENCOUNTER → 2017-07-01 | Outpatient (CLI) | payer OTHER | LOC: MHCPAIN 09:49 | DX: G89.29 Other chronic pain (principal); M47.817 Spondylosis without myelopathy or radiculopathy, lumbosacral region; M54.16 Radiculopathy, lumbar region; M53.3 Sacrococcygeal disorders, not elsewhere classified | CPT/HCPCS: G0463 ==

== ENCOUNTER 2017-07-18 09:45 | Outpatient (RCR) | payer OTHER ==
[2017-08-03] MEDS ORDERED: ATARAX50 MG PO (22:38)
[2017-08-03] MEDS ORDERED: KLONOPIN 0.5MG0.5 MG PO (22:39)
[2017-08-04] MEDS ORDERED: FLEXERIL 1010 MG/TAB PO (00:02)
[2017-08-04] MEDS ORDERED: NORCO 325 MG-51 TAB PO (00:02)
[2017-08-04] MEDS ORDERED: LIDODERM 5% PATC1 EA TP (00:02)
[2017-08-04] MEDS ORDERED: VOLTAREN 75 DR75 MG PO (00:02)
== END 2017-08-13 08:52 | disposition home or self-care (01) ==
LOC: WSPT 09:45
DX: M54.41 Lumbago with sciatica, right side (principal); M54.42 Lumbago with sciatica, left side; G89.29 Other chronic pain

== ENCOUNTER → 2017-07-31 | Outpatient (CLI) | payer OTHER ==
[~2017-07-31] MED LIST changes: +ATARAX50 MG PO; +LIDODERM 5% PATC1 EA TP; +VOLTAREN 75 DR75 MG PO
== END ==
LOC: BHSO 15:29
DX: F43.10 Post-traumatic stress disorder, unspecified (principal)
CPT/HCPCS: G0463

== ENCOUNTER 2017-08-03 22:27 | Emergency (ER) | payer OTHER ==
[~2017-08-03] VITALS: Ht 162.6 cm; Wt 81.8 kg
[~2017-08-03 22:27] MED LIST changes: -ATARAX50 MG PO; -LIDODERM 5% PATC1 EA TP; -VOLTAREN 75 DR75 MG PO
[2017-08-03 22:32] VITALS: TEMP 97.6
[2017-08-03] MEDS ORDERED: ATARAX50 MG PO (22:38)
[2017-08-03] MEDS ORDERED: KLONOPIN 0.5MG0.5 MG PO (22:39)
[2017-08-03 23:12] LABS: COLLECTION METHOD CLEAN CATCH
[2017-08-03 23:29] LABS: MUCOUS Present /lpf; PH 7 (5-8); URINE APPEARANCE Clear; URINE BACTERIA None Seen /hpf; URINE BILIRUBIN Negative (NEGATIVE); URINE BLOOD Negative (NEGATIVE); URINE COLOR Yellow; URINE GLUCOSE Negative (NEGATIVE); URINE KETONE Negative (NEGATIVE); URINE LEUKOCYTE ESTERASE Negative (NEGATIVE); URINE NITRATE Negative (NEGATIVE); URINE PROTEIN(semi-quant) Negative (NEGATIVE); URINE UROBILINOGEN Negative (NEGATIVE)
[2017-08-04] MEDS ORDERED: VOLTAREN 75 DR75 MG PO (00:02)
[2017-08-04] MEDS ORDERED: NORCO 325 MG-51 TAB PO (00:02)
[2017-08-04] MEDS ORDERED: LIDODERM 5% PATC1 EA TP (00:02)
[2017-08-04] MEDS ORDERED: FLEXERIL 1010 MG/TAB PO (00:02)
[2017-08-04 00:32] VITALS: BP 141/91; PULSE 78
== END 2017-08-04 00:30 | disposition home or self-care (01) ==
LOC: COL.ER 22:27
PROVIDERS: Emergency Medicine
DX: M48.56XA Collapsed vertebra, not elsewhere classified, lumbar region, initial encounter for fracture (principal); X50.0XXA Overexertion from strenuous movement or load, initial encounter
CPT/HCPCS: J1885; J2360; J2930; J3010; J7050

== ENCOUNTER → 2017-08-14 | Outpatient (CLI) | payer OTHER ==
[~2017-08-14] MED LIST changes: +ATARAX50 MG PO; +LIDODERM 5% PATC1 EA TP; +VOLTAREN 75 DR75 MG PO
== END ==
LOC: BHSO 11:06
DX: F31.11 Bipolar disorder, current episode manic without psychotic features, mild (principal)

== ENCOUNTER → 2017-09-03 | Outpatient (CLI) | payer OTHER | LOC: BHSO 09:00 | DX: F31.11 Bipolar disorder, current episode manic without psychotic features, mild (principal) ==

== ENCOUNTER 2017-09-16 16:15 | Emergency (ER) | payer OTHER ==
[~2017-09-16] VITALS: Ht 162.6 cm; Wt 81.8 kg
[2017-09-16 16:20] VITALS: BP 153/97; TEMP 99.1
[2017-09-16 18:17] LABS: BASO # 0.1 (0.0-0.2); BASO % 0.5 % (0.0-2.0); EOS # 0.2 (0.0-0.7); EOS % 1.1 % (0-4.0); GRAN % 68.9 % (42.2-75.2); HEMATOCRIT 47.8 % (37.0-47.0); HEMOGLOBIN 16.4 g/dl (12.5-16.0); LYMPH # 2.9 (1.2-3.4); MEAN CELL VOLUME 87 fl (80.0-100.0); MEAN CORPUSCULAR HEMOGLOBIN 30 pg (27.0-31.0); MEAN CORPUSCULAR HGB CONC 34 g/dl (33.0-37.0); MEAN PLATELET VOLUME 8.6 fl (7.4-10.4); MONO % 7.3 % (1.7-9.3); PLATELET COUNT 378 K/mm3 (130-400); REDCELL DISTRIBUTION WIDTH-CV 12.1 % (11.5-14.5)
[2017-09-16 18:27] LABS: ALBUMIN 4.2 gm/dL (3.5-5.0); BILIRUBIN,TOTAL 0.6 mg/dL (0.0-1.0); CALCIUM 9.7 mg/dL (8.4-10.2); CREATININE, serum 0.7 mg/dL (0.52-1.25); TOTAL PROTEIN 8.5 gm/dL (6.4-8.2)
[2017-09-16] MEDS ORDERED: PHENERGAN 25 TA25 MG PO (19:42)
[2017-09-16 20:19] VITALS: PULSE 94
== END 2017-09-16 20:19 | disposition home or self-care (01) ==
LOC: COL.ER 16:15
PROVIDERS: Physician Assistant
DX: G43.909 Migraine, unspecified, not intractable, without status migrainosus (principal); R19.7 Diarrhea, unspecified; R11.10 Vomiting, unspecified; F17.210 Nicotine dependence, cigarettes, uncomplicated; Z90.49 Acquired absence of other specified parts of digestive tract
CPT/HCPCS: J1885; J2550; J7030

== ENCOUNTER 2017-09-28 15:44 | Emergency (ER) | payer SELFPAY ==
[~2017-09-28] VITALS: Ht 162.6 cm; Wt 84.5 kg
[2017-09-28 15:48] VITALS: BP 156/95; TEMP 98.5
[2017-09-28] MEDS ORDERED: PREDNISONE20 MG PO (16:04)
[2017-09-28] MEDS ORDERED: FLEXERIL 1010 MG/TAB PO (16:04)
[2017-09-28 16:48] VITALS: PULSE 98
== END 2017-09-28 16:49 | disposition home or self-care (01) ==
LOC: COL.ER 15:44
DX: M75.91 Shoulder lesion, unspecified, right shoulder (principal); G89.29 Other chronic pain; M25.511 Pain in right shoulder; F17.210 Nicotine dependence, cigarettes, uncomplicated
CPT/HCPCS: J7512

== ENCOUNTER 2017-10-31 00:10 | Emergency (ER) | payer SELFPAY ==
[2017-10-31 00:20] VITALS: TEMP 98.9
[2017-10-31 02:05] VITALS: BP 157/87; PULSE 95
== END 2017-10-31 02:06 | disposition home or self-care (01) ==
LOC: COL.ER 00:10
DX: M54.5 Low back pain (principal); G89.29 Other chronic pain; F17.210 Nicotine dependence, cigarettes, uncomplicated

== ENCOUNTER 2017-12-24 00:44 | Emergency (ER) | payer SELFPAY ==
[~2017-12-24] VITALS: Ht 162.6 cm; Wt 84.1 kg
[2017-12-24 00:48] VITALS: TEMP 98.6
[2017-12-24 01:51] LABS: BASO # 0.1 (0.0-0.2); BASO % 0.5 % (0.0-2.0); EOS # 0.2 (0.0-0.7); EOS % 1.4 % (0-4.0); GRAN # 10.8 (1.4-6.5); GRAN % 70.8 % (42.2-75.2); HEMATOCRIT 47.2 % (37.0-47.0); HEMOGLOBIN 16.3 g/dl (12.5-16.0); LYMPH % 19.7 % (20.0-51.0); MEAN CELL VOLUME 87 fl (80.0-100.0); MEAN CORPUSCULAR HEMOGLOBIN 30 pg (27.0-31.0); MEAN CORPUSCULAR HGB CONC 35 g/dl (33.0-37.0); MEAN PLATELET VOLUME 8.7 fl (7.4-10.4); MONO # 1.1 (0.1-0.6); MONO % 7.1 % (1.7-9.3); PLATELET COUNT 377 K/mm3 (130-400); RED BLOOD COUNT 5.45 M/mm3 (4.10-5.30); REDCELL DISTRIBUTION WIDTH-CV 12.3 % (11.5-14.5)
[2017-12-24 01:56] LABS: ALBUMIN 4.2 gm/dL (3.5-5.0); BILIRUBIN,TOTAL 0.7 mg/dL (0.0-1.0); CALCIUM 9.3 mg/dL (8.4-10.2); CREATININE, serum 0.77 mg/dL (0.52-1.25); POTASSIUM 4.1 mmol/L (3.4-5.0)
[2017-12-24 02:26] LABS: COLLECTION METHOD CLEAN CATCH
[2017-12-24 02:31] LABS: PH 6 (5-8); SQUAMOUS EPITHELIAL 0-2 /hpf; URINE APPEARANCE Clear; URINE BACTERIA None Seen /hpf; URINE BILIRUBIN Negative (NEGATIVE); URINE BLOOD Negative (NEGATIVE); URINE COLOR Yellow; URINE GLUCOSE Negative (NEGATIVE); URINE KETONE Negative (NEGATIVE); URINE LEUKOCYTE ESTERASE Negative (NEGATIVE); URINE NITRATE Negative (NEGATIVE); URINE PROTEIN(semi-quant) Negative (NEGATIVE); URINE RBC 0-2 /hpf; URINE UROBILINOGEN Negative (NEGATIVE)
[2017-12-24 03:24] VITALS: BP 158/113; PULSE 87
== END 2017-12-24 03:27 | disposition home or self-care (01) ==
LOC: COL.ER 00:44
PROVIDERS: Physician Assistant
DX: G43.909 Migraine, unspecified, not intractable, without status migrainosus (principal); M54.5 Low back pain; F17.210 Nicotine dependence, cigarettes, uncomplicated; Z90.49 Acquired absence of other specified parts of digestive tract
CPT/HCPCS: J1885; J7030

== ENCOUNTER 2018-01-03 00:37 | Emergency (ER) | payer SELFPAY ==
[~2018-01-03] VITALS: Ht 162.6 cm; Wt 84.1 kg
[2018-01-03 00:42] VITALS: BP 156/100; TEMP 98.8
[2018-01-03] MEDS ORDERED: CILOXAN 5 ML5 ML OD (03:01)
[2018-01-03 03:15] VITALS: PULSE 87
== END 2018-01-03 03:15 | disposition home or self-care (01) ==
LOC: COL.ER 00:37
DX: G43.909 Migraine, unspecified, not intractable, without status migrainosus (principal); G89.29 Other chronic pain; M54.5 Low back pain; R11.0 Nausea; F17.210 Nicotine dependence, cigarettes, uncomplicated; H57.89 Other specified disorders of eye and adnexa
CPT/HCPCS: J1885; J2550; J7030

== ENCOUNTER 2018-03-02 08:15 | Emergency (ER) | payer SELFPAY ==
[~2018-03-02] VITALS: Ht 162.6 cm; Wt 81.8 kg
[~2018-03-02 08:15] MED LIST changes: +CILOXAN 5 ML5 ML OD
[2018-03-02 08:19] VITALS: BP 169/84; TEMP 97.5
[2018-03-02] MEDS ORDERED: FLEXERIL 1010 MG/TAB PO (08:48)
[2018-03-02] MEDS ORDERED: LIDODERM 5% PATC1 EA TP (08:48)
[2018-03-02] MEDS ORDERED: NORCO 325 MG-51 TAB PO (08:48)
[2018-03-02 09:04] LABS: COLLECTION METHOD CLEAN CATCH
[2018-03-02 09:22] LABS: MUCOUS Present /lpf; PH 5 (5-8); URINE APPEARANCE Hazy; URINE BACTERIA None Seen /hpf; URINE BILIRUBIN Negative (NEGATIVE); URINE BLOOD Negative (NEGATIVE); URINE COLOR Yellow; URINE GLUCOSE Negative (NEGATIVE); URINE KETONE Negative (NEGATIVE); URINE LEUKOCYTE ESTERASE Negative (NEGATIVE); URINE NITRATE Negative (NEGATIVE); URINE PROTEIN(semi-quant) Negative (NEGATIVE); URINE UROBILINOGEN Negative (NEGATIVE)
[2018-03-02 10:32] VITALS: PULSE 110
== END 2018-03-02 10:30 | disposition home or self-care (01) ==
LOC: COL.ER 08:15
PROVIDERS: Emergency Medicine
DX: S39.012A Strain of muscle, fascia and tendon of lower back, initial encounter (principal); X50.0XXA Overexertion from strenuous movement or load, initial encounter
CPT/HCPCS: J1170; J1885

== ENCOUNTER 2018-03-14 17:18 | Emergency (ER) | payer SELFPAY ==
[~2018-03-14] VITALS: Ht 162.6 cm; Wt 81.8 kg
[2018-03-14 17:20] VITALS: BP 141/88; TEMP 99.2
[2018-03-14 18:15] VITALS: PULSE 98
== END 2018-03-14 18:15 | disposition home or self-care (01) ==
LOC: COL.ER 17:18
DX: S93.491A Sprain of other ligament of right ankle, initial encounter (principal); F17.210 Nicotine dependence, cigarettes, uncomplicated; M79.7 Fibromyalgia; X50.0XXA Overexertion from strenuous movement or load, initial encounter; Y92.009 Unspecified place in unspecified non-institutional (private) residence as the place of occurrence of the external cause

== ENCOUNTER 2018-04-01 15:37 | Emergency (ER) | payer SELFPAY ==
[~2018-04-01] VITALS: Ht 162.6 cm; Wt 81.8 kg
[2018-04-01 15:54] VITALS: TEMP 99.2
[2018-04-01] MEDS ORDERED: HORIZANT600 MG PO (16:14)
[2018-04-01] MEDS ORDERED: CYMBALTA 60MG60 MG PO (16:14)
[2018-04-01] MEDS ORDERED: LAMICTAL150 MG PO (16:15)
[2018-04-01 16:52] VITALS: BP 135/82; PULSE 100
== END 2018-04-01 16:55 | disposition home or self-care (01) ==
LOC: COL.ER 15:37
DX: S93.491A Sprain of other ligament of right ankle, initial encounter (principal); J45.909 Unspecified asthma, uncomplicated; I10 Essential (primary) hypertension; F17.210 Nicotine dependence, cigarettes, uncomplicated; F31.9 Bipolar disorder, unspecified; X50.0XXA Overexertion from strenuous movement or load, initial encounter; Y92.009 Unspecified place in unspecified non-institutional (private) residence as the place of occurrence of the external cause

== ENCOUNTER 2018-04-21 23:00 | Emergency (ER) | payer SELFPAY ==
[~2018-04-21] VITALS: Ht 162.6 cm; Wt 81.8 kg
[~2018-04-21 23:00] MED LIST changes: +HORIZANT600 MG PO
[2018-04-21 23:04] VITALS: TEMP 98.7
[2018-04-21 23:35] LABS: BASO # 0.1 (0.0-0.2); BASO % 0.5 % (0.0-2.0); EOS # 0.1 (0.0-0.7); EOS % 1.2 % (0-4.0); GRAN # 6.8 (1.4-6.5); GRAN % 64.6 % (42.2-75.2); HEMATOCRIT 46.5 % (37.0-47.0); HEMOGLOBIN 15.8 g/dl (12.5-16.0); LYMPH # 2.7 (1.2-3.4); LYMPH % 25.2 % (20.0-51.0); MEAN CELL VOLUME 87 fl (80.0-100.0); MEAN CORPUSCULAR HEMOGLOBIN 30 pg (27.0-31.0); MEAN CORPUSCULAR HGB CONC 34 g/dl (33.0-37.0); MEAN PLATELET VOLUME 8.7 fl (7.4-10.4); MONO # 0.9 (0.1-0.6); MONO % 8.1 % (1.7-9.3); PLATELET COUNT 371 K/mm3 (130-400); RED BLOOD COUNT 5.33 M/mm3 (4.10-5.30); REDCELL DISTRIBUTION WIDTH-CV 12.2 % (11.5-14.5)
[2018-04-21 23:50] LABS: ALANINE AMINOTRANSFERASE 48 U/L (9-52); ALBUMIN 4.4 gm/dL (3.5-5.0); ALKALINE PHOSPHATASE 64 U/L (50-136); ANION GAP 10 mmol/L (7-16); AST,SGOT 33 U/L (15-37); BLOOD UREA NITROGEN 7 mg/dL (7-17); CALCIUM 9.2 mg/dL (8.4-10.2); CARBON DIOXIDE 25 mmol/L (22-30); CHLORIDE 102 mmol/L (98-107); CREATININE, serum 0.84 mg/dL (0.52-1.25); GLUCOSE 101 mg/dL (74-106); LIPASE 63 U/L (23-300); POTASSIUM 3.8 mmol/L (3.4-5.0); SODIUM 136 mmol/L (137-145); TOTAL PROTEIN 8.1 gm/dL (6.4-8.2)
[2018-04-21 23:51] LABS: C-REACTIVE PROTEIN < 0.5 mg/dL (0.0-0.9)
[2018-04-22 00:49] LABS: COLLECTION METHOD CLEAN CATCH
[2018-04-22 01:00] LABS: MUCOUS Present /lpf; PH 6 (5-8); SQUAMOUS EPITHELIAL 0-2 /hpf; URINE APPEARANCE Clear; URINE BACTERIA Rare /hpf; URINE BILIRUBIN Negative (NEGATIVE); URINE BLOOD Negative (NEGATIVE); URINE COLOR Yellow; URINE GLUCOSE Negative (NEGATIVE); URINE KETONE Negative (NEGATIVE); URINE LEUKOCYTE ESTERASE Negative (NEGATIVE); URINE NITRATE Negative (NEGATIVE); URINE PROTEIN(semi-quant) Negative (NEGATIVE); URINE RBC 0-2 /hpf; URINE UROBILINOGEN Negative (NEGATIVE)
[2018-04-22] MEDS ORDERED: ZOFRAN 4MG T4 MG/TAB PO (02:03)
[2018-04-22 02:15] VITALS: BP 150/84; PULSE 86
== END 2018-04-22 02:23 | disposition home or self-care (01) ==
LOC: COL.ER 23:00
PROVIDERS: Emergency Medicine
DX: R11.2 Nausea with vomiting, unspecified (principal); R19.7 Diarrhea, unspecified; M79.7 Fibromyalgia; R10.12 Left upper quadrant pain; G43.909 Migraine, unspecified, not intractable, without status migrainosus; F17.210 Nicotine dependence, cigarettes, uncomplicated; Z90.49 Acquired absence of other specified parts of digestive tract
CPT/HCPCS: J2405; J7030

== ENCOUNTER → 2018-05-01 | Emergency (ER) | payer SELFPAY ==
[~2018-05-01] VITALS: Ht 162.6 cm; Wt 81.8 kg
[2018-05-01 15:58] VITALS: TEMP 98.6
[2018-05-01 16:24] LABS: COLLECTION METHOD CLEAN CATCH
[2018-05-01 16:26] LABS: BASO # 0.1 (0.0-0.2); BASO % 0.4 % (0.0-2.0); EOS # 0.1 (0.0-0.7); EOS % 0.5 % (0-4.0); GRAN # 9.1 (1.4-6.5); GRAN % 74.4 % (42.2-75.2); HEMATOCRIT 48.8 % (37.0-47.0); HEMOGLOBIN 16.4 g/dl (12.5-16.0); LYMPH # 2.2 (1.2-3.4); LYMPH % 18.1 % (20.0-51.0); MEAN CELL VOLUME 88 fl (80.0-100.0); MEAN CORPUSCULAR HEMOGLOBIN 29 pg (27.0-31.0); MEAN CORPUSCULAR HGB CONC 34 g/dl (33.0-37.0); MEAN PLATELET VOLUME 8.7 fl (7.4-10.4); MONO # 0.8 (0.1-0.6); MONO % 6.3 % (1.7-9.3); PLATELET COUNT 446 K/mm3 (130-400); RED BLOOD COUNT 5.57 M/mm3 (4.10-5.30); REDCELL DISTRIBUTION WIDTH-CV 12.1 % (11.5-14.5)
[2018-05-01 16:29] LABS: MUCOUS Present /lpf; PH 5 (5-8); URINE APPEARANCE Clear; URINE BACTERIA Rare /hpf; URINE BILIRUBIN Negative (NEGATIVE); URINE BLOOD Negative (NEGATIVE); URINE COLOR Yellow; URINE GLUCOSE Negative (NEGATIVE); URINE KETONE Negative (NEGATIVE); URINE LEUKOCYTE ESTERASE Negative (NEGATIVE); URINE NITRATE Negative (NEGATIVE); URINE PROTEIN(semi-quant) 1+ (NEGATIVE)
[2018-05-01 16:42] LABS: ALBUMIN 4.5 gm/dL (3.5-5.0); BILIRUBIN,TOTAL 0.6 mg/dL (0.0-1.0); CALCIUM 9.6 mg/dL (8.4-10.2); CREATININE, serum 0.75 mg/dL (0.52-1.25); TOTAL PROTEIN 8.3 gm/dL (6.4-8.2)
[2018-05-01 18:31] VITALS: BP 150/102; PULSE 91
== END ==
LOC: COL.ER 15:51
PROVIDERS: Nurse Practitioner
DX: R10.9 Unspecified abdominal pain (principal); I10 Essential (primary) hypertension; F12.90 Cannabis use, unspecified, uncomplicated; M79.7 Fibromyalgia; F32.9 Major depressive disorder, single episode, unspecified; J45.909 Unspecified asthma, uncomplicated; F17.210 Nicotine dependence, cigarettes, uncomplicated; F41.9 Anxiety disorder, unspecified; Z90.49 Acquired absence of other specified parts of digestive tract
CPT/HCPCS: J1885; J2405; J7030; Q9967

== ENCOUNTER → 2018-05-06 | Outpatient (CLI) | payer SELFPAY | LOC: BHSO 09:31 | DX: F43.10 Post-traumatic stress disorder, unspecified (principal) | CPT/HCPCS: G0463 ==

== ENCOUNTER → 2018-05-07 | Outpatient (CLI) | payer SELFPAY | LOC: BHSO 14:07 | DX: F43.10 Post-traumatic stress disorder, unspecified (principal) ==

== ENCOUNTER 2018-06-02 10:26 | Emergency (ER) | payer SELFPAY ==
[~2018-06-02] VITALS: Ht 162.6 cm; Wt 81.8 kg
[2018-06-02 10:36] VITALS: BP 130/82
[2018-06-02] MEDS ORDERED: NORCO 325 MG-51 TAB PO (11:06)
[2018-06-02] MEDS ORDERED: MEDROL 4MG DOSPA4 MG PO (11:06)
[2018-06-02] MEDS ORDERED: LIDODERM 5% PATC1 EA TP (11:22)
[2018-06-02 11:24] VITALS: PULSE 97; TEMP 97.9
== END 2018-06-02 11:24 | disposition home or self-care (01) ==
LOC: COL.ER 10:26
DX: G89.29 Other chronic pain (principal); M54.5 Low back pain; F17.210 Nicotine dependence, cigarettes, uncomplicated; F31.9 Bipolar disorder, unspecified; F41.9 Anxiety disorder, unspecified

== ENCOUNTER 2018-10-12 22:12 | Emergency (ER) | payer SELFPAY ==
[~2018-10-12] VITALS: Ht 162.6 cm; Wt 82.2 kg
[2018-10-12 22:20] VITALS: BP 143/85; TEMP 98.6
[2018-10-12 22:53] LABS: STREP SCREEN NEGATIVE
[2018-10-12] MEDS ORDERED: AMOXICILLIN 50500 MG PO (23:13)
[2018-10-12 23:21] VITALS: PULSE 84
== END 2018-10-12 23:21 | disposition home or self-care (01) ==
LOC: COL.ER 22:12
PROVIDERS: Emergency Medicine
DX: J02.9 Acute pharyngitis, unspecified (principal); F17.210 Nicotine dependence, cigarettes, uncomplicated

== ENCOUNTER 2018-12-09 23:14 | Emergency (ER) | payer SELFPAY ==
[~2018-12-09] VITALS: Ht 162.6 cm; Wt 79.5 kg
[2018-12-09 23:31] VITALS: BP 139/93; TEMP 98.7
[2018-12-10] MEDS ORDERED: ZITHROMAX Z PA250 MG PO (00:24)
[2018-12-10 01:25] VITALS: PULSE 94
== END 2018-12-10 01:25 | disposition home or self-care (01) ==
LOC: COL.ER 23:14
DX: J06.9 Acute upper respiratory infection, unspecified (principal)
CPT/HCPCS: J1100

== ENCOUNTER 2018-12-14 08:26 | Emergency (ER) | payer SELFPAY ==
[~2018-12-14] VITALS: Ht 162.6 cm; Wt 79.5 kg
[2018-12-14 08:32] VITALS: TEMP 98.3
[2018-12-14] MEDS ORDERED: PROAIR HFA0.09 MG/AC IH (09:23)
[2018-12-14] MEDS ORDERED: AMOXICILLIN 50500 MG PO (09:23)
[2018-12-14] MEDS ORDERED: PREDNISONE20 MG PO (09:23)
[2018-12-14 10:18] VITALS: BP 136/86; PULSE 89
== END 2018-12-14 10:19 | disposition home or self-care (01) ==
LOC: COL.ER 08:26
DX: J20.9 Acute bronchitis, unspecified (principal); J01.90 Acute sinusitis, unspecified; F17.210 Nicotine dependence, cigarettes, uncomplicated; F41.9 Anxiety disorder, unspecified; F31.9 Bipolar disorder, unspecified; Z90.89 Acquired absence of other organs
CPT/HCPCS: J7512

== ENCOUNTER 2019-05-20 18:41 | Emergency (ER) | payer SELFPAY ==
[~2019-05-20] VITALS: Ht 162.6 cm; Wt 82.3 kg
[2019-05-20 18:55] VITALS: TEMP 98.9
[2019-05-20 20:23] LABS: COLLECTION METHOD CLEAN CATCH
[2019-05-20 20:35] LABS: MUCOUS Present /lpf; PH 6 (5-8); URINE APPEARANCE Hazy; URINE BACTERIA Rare /hpf; URINE BILIRUBIN Negative (NEGATIVE); URINE BLOOD Negative (NEGATIVE); URINE COLOR Yellow; URINE GLUCOSE Negative (NEGATIVE); URINE KETONE Negative (NEGATIVE); URINE LEUKOCYTE ESTERASE Negative (NEGATIVE); URINE NITRATE Negative (NEGATIVE); URINE PROTEIN(semi-quant) Negative (NEGATIVE); URINE RBC 0-2 /hpf; URINE UROBILINOGEN Negative (NEGATIVE)
[2019-05-20] MEDS ORDERED: TAMIFLU 75MG75 MG PO (21:11)
[2019-05-20 21:37] VITALS: BP 135/90; PULSE 97
== END 2019-05-20 21:37 | disposition home or self-care (01) ==
LOC: COL.ER 18:41
PROVIDERS: Nurse Practitioner
DX: J11.1 Influenza due to unidentified influenza virus with other respiratory manifestations (principal); F32.9 Major depressive disorder, single episode, unspecified; F41.9 Anxiety disorder, unspecified; F17.210 Nicotine dependence, cigarettes, uncomplicated; Z90.89 Acquired absence of other organs; Z79.52 Long term (current) use of systemic steroids
CPT/HCPCS: J7030

== ENCOUNTER → 2019-11-25 | Outpatient (CLI) | payer SELFPAY ==
[~2019-11-25] MED LIST changes: +TAMIFLU 75MG75 MG PO
== END ==
LOC: BHSO 09:21
DX: F43.10 Post-traumatic stress disorder, unspecified (principal)
CPT/HCPCS: G0463

== ENCOUNTER 2020-07-18 13:40 | Emergency (ER) | payer SELFPAY ==
[~2020-07-18] VITALS: Ht 162.6 cm; Wt 77.3 kg
[2020-07-18 13:47] VITALS: TEMP 98.3
[2020-07-18] MEDS ORDERED: FLEXERIL 1010 MG/TAB PO (15:05)
[2020-07-18] MEDS ORDERED: VOLTAREN 75 DR75 MG PO (15:05)
[2020-07-18 15:11] VITALS: BP 135/90; PULSE 84
== END 2020-07-18 15:11 | disposition home or self-care (01) ==
LOC: COL.ER 13:40
DX: M54.5 Low back pain (principal); G89.29 Other chronic pain; F17.210 Nicotine dependence, cigarettes, uncomplicated; Z90.49 Acquired absence of other specified parts of digestive tract; Z88.1 Allergy status to other antibiotic agents; Z88.2 Allergy status to sulfonamides; Z88.8 Allergy status to other drugs, medicaments and biological substances; Z91.040 Latex allergy status; Z79.51 Long term (current) use of inhaled steroids; X50.0XXA Overexertion from strenuous movement or load, initial encounter; Y93.F2 Activity, caregiving, lifting; Y99.0 Civilian activity done for income or pay
CPT/HCPCS: J1885; J2360

== ENCOUNTER 2020-08-27 15:39 | Emergency (ER) | payer SELFPAY ==
[~2020-08-27] VITALS: Ht 162.6 cm; Wt 74.5 kg
[2020-08-27 15:53] VITALS: BP 141/93; TEMP 98.7
[2020-08-27 16:36] LABS: COLLECTION METHOD CLEAN CATCH
[2020-08-27 16:41] LABS: BASO # 0.1 (0.0-0.2); BASO % 0.6 % (0.0-2.0); EOS # 0.2 (0.0-0.7); EOS % 1.6 % (0-4.0); GRAN # 6.1 (1.4-6.5); GRAN % 56.2 % (42.2-75.2); HEMATOCRIT 43.4 % (37.0-47.0); HEMOGLOBIN 14.8 g/dl (12.5-16.0); LYMPH # 3.6 (1.2-3.4); LYMPH % 32.9 % (20.0-51.0); MEAN CELL VOLUME 86 fl (80.0-100.0); MEAN CORPUSCULAR HEMOGLOBIN 29 pg (27.0-31.0); MEAN CORPUSCULAR HGB CONC 34 g/dl (33.0-37.0); MEAN PLATELET VOLUME 8.7 fl (7.4-10.4); MONO # 0.9 (0.1-0.6); MONO % 8.4 % (1.7-9.3); PLATELET COUNT 421 K/mm3 (130-400); RED BLOOD COUNT 5.05 M/mm3 (4.10-5.30); REDCELL DISTRIBUTION WIDTH-CV 12.2 % (11.5-14.5)
[2020-08-27 16:47] LABS: MUCOUS Present /lpf; PH 5 (5-8); URINE APPEARANCE Hazy; URINE BACTERIA Rare /hpf; URINE BILIRUBIN Positive (NEGATIVE); URINE BLOOD Negative (NEGATIVE); URINE CALCIUM OXALATE CRYSTAL Present /hpf; URINE COLOR Amber; URINE GLUCOSE Negative (NEGATIVE); URINE KETONE Trace (NEGATIVE); URINE LEUKOCYTE ESTERASE Trace (NEGATIVE); URINE NITRATE Negative (NEGATIVE); URINE PROTEIN(semi-quant) 2+ (NEGATIVE); URINE UROBILINOGEN >=4.0 mg/dL (NEGATIVE)
[2020-08-27 16:53] LABS: ALANINE AMINOTRANSFERASE 19 U/L (4-34); ALBUMIN 4.2 gm/dL (3.5-5.0); ALKALINE PHOSPHATASE 46 U/L (50-136); ANION GAP 6 mmol/L (7-16); AST,SGOT 23 U/L (15-37); BILIRUBIN,TOTAL 0.4 mg/dL (0.0-1.0); BLOOD UREA NITROGEN 9 mg/dL (7-17); CALCIUM 9.6 mg/dL (8.4-10.2); CARBON DIOXIDE 30 mmol/L (22-30); CHLORIDE 103 mmol/L (98-107); GLUCOSE 83 mg/dL (74-106); LIPASE 100 U/L (23-300); POTASSIUM 3.4 mmol/L (3.4-5.0); SODIUM 139 mmol/L (137-145); TOTAL PROTEIN 7.7 gm/dL (6.4-8.2)
[2020-08-27 16:57] LABS: C-REACTIVE PROTEIN < 0.5 mg/dL (0.0-0.9)
[2020-08-27 18:29] VITALS: PULSE 78
[2020-08-28] MEDS ORDERED: ZOFRAN ODT4 MG PO (12:17)
[2020-08-28] MEDS ORDERED: NORCO 325 MG-51 TAB PO (12:18)
== END 2020-08-27 18:28 | disposition home or self-care (01) ==
LOC: COL.ER 15:39
PROVIDERS: Family Medicine
DX: K52.9 Noninfective gastroenteritis and colitis, unspecified (principal); F17.210 Nicotine dependence, cigarettes, uncomplicated; Z90.49 Acquired absence of other specified parts of digestive tract
CPT/HCPCS: J1885; J2270; J2405; J7120; Q9967

== ENCOUNTER 2020-08-28 08:28 | Emergency (ER) | payer SELFPAY ==
[~2020-08-28] VITALS: Ht 162.6 cm; Wt 74.5 kg
[2020-08-28 08:43] VITALS: TEMP 97.6
[2020-08-28 09:04] LABS: COLLECTION METHOD CLEAN CATCH
[2020-08-28 09:08] LABS: BASO # 0.1 (0.0-0.2); BASO % 0.6 % (0.0-2.0); EOS # 0.2 (0.0-0.7); EOS % 2.1 % (0-4.0); GRAN % 65.3 % (42.2-75.2); HEMATOCRIT 44.9 % (37.0-47.0); HEMOGLOBIN 15.2 g/dl (12.5-16.0); LYMPH # 2.3 (1.2-3.4); LYMPH % 21.2 % (20.0-51.0); MEAN CELL VOLUME 88 fl (80.0-100.0); MEAN CORPUSCULAR HEMOGLOBIN 30 pg (27.0-31.0); MEAN CORPUSCULAR HGB CONC 34 g/dl (33.0-37.0); MEAN PLATELET VOLUME 8.6 fl (7.4-10.4); MONO # 1.1 (0.1-0.6); MONO % 10.6 % (1.7-9.3); PLATELET COUNT 431 K/mm3 (130-400); RED BLOOD COUNT 5.13 M/mm3 (4.10-5.30)
[2020-08-28 09:11] LABS: MUCOUS Present /lpf; PH 5 (5-8); SQUAMOUS EPITHELIAL 0-2 /hpf; URINE APPEARANCE Clear; URINE BACTERIA None Seen /hpf; URINE BILIRUBIN Negative (NEGATIVE); URINE BLOOD Negative (NEGATIVE); URINE COLOR Yellow; URINE GLUCOSE Negative (NEGATIVE); URINE KETONE Negative (NEGATIVE); URINE LEUKOCYTE ESTERASE Negative (NEGATIVE); URINE NITRATE Negative (NEGATIVE); URINE PROTEIN(semi-quant) Negative (NEGATIVE); URINE RBC None Seen /hpf; URINE UROBILINOGEN Negative (NEGATIVE)
[2020-08-28 09:18] LABS: ALANINE AMINOTRANSFERASE 18 U/L (4-34); ALBUMIN 4.1 gm/dL (3.5-5.0); ALKALINE PHOSPHATASE 48 U/L (50-136); ANION GAP 5 mmol/L (7-16); AST,SGOT 24 U/L (15-37); BILIRUBIN,TOTAL 0.7 mg/dL (0.0-1.0); BLOOD UREA NITROGEN 6 mg/dL (7-17); CALCIUM 9.6 mg/dL (8.4-10.2); CARBON DIOXIDE 29 mmol/L (22-30); CHLORIDE 104 mmol/L (98-107); CREATININE, serum 0.76 (0.52-1.25); GLUCOSE 94 mg/dL (74-106); LIPASE 69 U/L (23-300); POTASSIUM 3.7 mmol/L (3.4-5.0); SODIUM 139 mmol/L (137-145); TOTAL PROTEIN 7.6 gm/dL (6.4-8.2)
[2020-08-28 09:19] LABS: C-REACTIVE PROTEIN < 0.5 mg/dL (0.0-0.9)
[2020-08-28] MEDS ORDERED: ZOFRAN ODT4 MG PO (12:17)
[2020-08-28] MEDS ORDERED: NORCO 325 MG-51 TAB PO (12:18)
[2020-08-28 12:25] VITALS: BP 141/94; PULSE 73
== END 2020-08-28 12:30 | disposition home or self-care (01) ==
LOC: COL.ER 08:28
PROVIDERS: Family Medicine
DX: K52.9 Noninfective gastroenteritis and colitis, unspecified (principal); F17.210 Nicotine dependence, cigarettes, uncomplicated; Z20.822 Contact with and (suspected) exposure to COVID-19; Z90.49 Acquired absence of other specified parts of digestive tract; Z88.1 Allergy status to other antibiotic agents
CPT/HCPCS: J0780; J1170; J2405; J7120

== ENCOUNTER 2020-10-27 15:58 | Emergency (ER) | payer SELFPAY ==
[~2020-10-27] VITALS: Ht 162.6 cm; Wt 72.7 kg
[~2020-10-27 15:58] MED LIST changes: +ZOFRAN ODT4 MG PO
[2020-10-27 16:30] LABS: BASO # 0.1 (0.0-0.2); BASO % 0.7 % (0.0-2.0); EOS # 0.2 (0.0-0.7); EOS % 2.1 % (0-4.0); GRAN # 5.7 (1.4-6.5); GRAN % 62.6 % (42.2-75.2); HEMATOCRIT 49.6 % (37.0-47.0); HEMOGLOBIN 16.6 g/dl (12.5-16.0); LYMPH # 2.3 (1.2-3.4); LYMPH % 25.3 % (20.0-51.0); MEAN CELL VOLUME 87 fl (80.0-100.0); MEAN CORPUSCULAR HEMOGLOBIN 29 pg (27.0-31.0); MEAN CORPUSCULAR HGB CONC 34 g/dl (33.0-37.0); MEAN PLATELET VOLUME 8.5 fl (7.4-10.4); MONO # 0.8 (0.1-0.6); PLATELET COUNT 419 K/mm3 (130-400); RED BLOOD COUNT 5.73 M/mm3 (4.10-5.30)
[2020-10-27 17:50] LABS: BILIRUBIN,TOTAL 0.5 mg/dL (0.0-1.0); CALCIUM 9.1 mg/dL (8.4-10.2); CREATININE, serum 0.75 (0.52-1.25); POTASSIUM 4.1 mmol/L (3.4-5.0); TOTAL PROTEIN 7.4 gm/dL (6.4-8.2)
[2020-10-27 18:08] LABS: COLLECTION METHOD CLEAN CATCH
[2020-10-27 18:17] LABS: PH 6 (5-8); URINE APPEARANCE Hazy; URINE BACTERIA Rare /hpf; URINE BILIRUBIN Negative (NEGATIVE); URINE BLOOD Negative (NEGATIVE); URINE COLOR Yellow; URINE GLUCOSE Negative (NEGATIVE); URINE KETONE Negative (NEGATIVE); URINE LEUKOCYTE ESTERASE Negative (NEGATIVE); URINE NITRATE Negative (NEGATIVE); URINE PROTEIN(semi-quant) Negative (NEGATIVE); URINE RBC 0-2 /hpf; URINE UROBILINOGEN Negative (NEGATIVE)
[2020-10-27 19:35] VITALS: BP 148/98; PULSE 84; TEMP 98.8
== END 2020-10-27 18:35 | disposition home or self-care (01) ==
LOC: COL.ER 15:58
PROVIDERS: Family Medicine; Physician Assistant
DX: K52.9 Noninfective gastroenteritis and colitis, unspecified (principal); F17.210 Nicotine dependence, cigarettes, uncomplicated; Z20.822 Contact with and (suspected) exposure to COVID-19
CPT/HCPCS: J7030

== ENCOUNTER 2020-11-18 14:59 | Emergency (ER) | payer SELFPAY ==
[~2020-11-18] VITALS: Ht 162.6 cm; Wt 72.7 kg
[2020-11-18 15:05] VITALS: TEMP 98.7
[2020-11-18 17:36] VITALS: BP 138/93; PULSE 94
== END 2020-11-18 17:40 | disposition home or self-care (01) ==
LOC: COL.ER 14:59
DX: U07.1 COVID-19 (principal); F17.210 Nicotine dependence, cigarettes, uncomplicated
CPT/HCPCS: J7120; Q0244

== ENCOUNTER 2021-03-29 13:36 | Emergency (ER) | payer OTHER | END 2021-03-29 14:41 | disposition left against medical advice (07) | LOC: COL.ER 13:36 | DX: R69 Illness, unspecified (principal) ==

== ENCOUNTER 2021-04-01 22:27 | Emergency (ER) | payer OTHER ==
[~2021-04-01] VITALS: Ht 162.6 cm; Wt 75.0 kg
[2021-04-01 23:48] VITALS: TEMP 98.6
[2021-04-02 03:22] VITALS: BP 127/72; PULSE 83
== END 2021-04-02 03:22 | disposition home or self-care (01) ==
LOC: COL.ER 22:27
DX: R51.9 Headache, unspecified (principal); F17.210 Nicotine dependence, cigarettes, uncomplicated; Z86.69 Personal history of other diseases of the nervous system and sense organs; Z20.822 Contact with and (suspected) exposure to COVID-19
CPT/HCPCS: J1885; J2550; J7030

== ENCOUNTER 2021-05-30 17:06 | Emergency (ER) | payer OTHER ==
[~2021-05-30] VITALS: Ht 162.6 cm; Wt 81.8 kg
[2021-05-30] MEDS ORDERED: CLEOCIN HCL300 MG PO (18:01)
[2021-05-30] MEDS ORDERED: ULTRAM 50MG TAB50 MG PO (18:01)
[2021-05-30 18:17] VITALS: BP 156/100; PULSE 86; TEMP 98
== END 2021-05-30 18:20 | disposition home or self-care (01) ==
LOC: COL.ER 17:06
DX: K02.9 Dental caries, unspecified (principal); F17.200 Nicotine dependence, unspecified, uncomplicated; Z98.818 Other dental procedure status; Z88.1 Allergy status to other antibiotic agents; Z88.2 Allergy status to sulfonamides; Z91.040 Latex allergy status

== ENCOUNTER 2021-09-10 17:35 | Emergency (ER) | payer OTHER ==
[~2021-09-10] VITALS: Ht 162.6 cm; Wt 85.9 kg
[~2021-09-10 17:35] MED LIST changes: +CLEOCIN HCL300 MG PO; +ULTRAM 50MG TAB50 MG PO
[2021-09-10 18:00] VITALS: BP 145/86; TEMP 98.3
[2021-09-10 20:07] VITALS: PULSE 76
== END 2021-09-10 20:09 | disposition home or self-care (01) ==
LOC: COL.ER 17:35
DX: R51.9 Headache, unspecified (principal); F17.200 Nicotine dependence, unspecified, uncomplicated; Z91.040 Latex allergy status

== ENCOUNTER 2022-04-26 15:25 | Emergency (ER) | payer OTHER ==
[~2022-04-26] VITALS: Ht 162.6 cm; Wt 90.9 kg
[2022-04-26 15:45] VITALS: TEMP 98.1
[2022-04-26 16:39] LABS: BASO # 0.1 K/mm3 (0.0-0.2); BASO % 0.7 % (0.0-2.0); EOS # 0.2 K/mm3 (0.0-0.7); EOS % 2.1 % (0.0-4.0); GRAN % 60.7 % (42.2-75.2); HEMATOCRIT 45.6 % (37.0-47.0); HEMOGLOBIN 15.6 g/dl (12.5-16.0); LYMPH # 2.8 K/mm3 (1.2-3.4); LYMPH % 28.7 % (20.0-51.0); MEAN CELL VOLUME 87 fl (80.0-100.0); MEAN CORPUSCULAR HEMOGLOBIN 30 pg (27-31); MEAN CORPUSCULAR HGB CONC 34 g/dl (33.0-37.0); MEAN PLATELET VOLUME 8.4 fl (7.4-10.4); MONO # 0.8 K/mm3 (0.1-0.6); MONO % 7.6 % (1.7-9.3); PLATELET COUNT 454 K/mm3 (130-400); RED BLOOD COUNT 5.27 M/mm3 (4.10-5.30); REDCELL DISTRIBUTION WIDTH-CV 12.4 % (11.5-14.5)
[2022-04-26 16:50] LABS: CREATININE, serum 0.79 mg/dL (0.57-1.11); POTASSIUM 3.5 mmol/L (3.5-4.5)
[2022-04-26 21:00] VITALS: BP 138/89; PULSE 72
== END 2022-04-26 21:00 | disposition home or self-care (01) ==
LOC: COL.ER 15:25
PROVIDERS: Emergency Medicine
DX: R51.9 Headache, unspecified (principal); H53.9 Unspecified visual disturbance; Z91.040 Latex allergy status
CPT/HCPCS: J1885; J2060; J2270; J2405; Q9967

== ENCOUNTER 2023-03-25 08:15 | Outpatient (RCR) | payer OTHER | END 2023-03-30 | disposition home or self-care (01) | LOC: WSPT | DX: M54.50 Low back pain, unspecified (principal); S32.049S Unspecified fracture of fourth lumbar vertebra, sequela; X58.XXXS Exposure to other specified factors, sequela ==

== ENCOUNTER 2023-04-23 15:45 | Outpatient (RCR) | payer OTHER | END 2023-04-30 | disposition home or self-care (01) | LOC: WSPT | DX: M54.50 Low back pain, unspecified (principal); S32.049S Unspecified fracture of fourth lumbar vertebra, sequela; M25.561 Pain in right knee; X58.XXXS Exposure to other specified factors, sequela ==

== ENCOUNTER → 2024-01-02 | Outpatient (CLI) | payer OTHER ==
[~2024-01-02] MED LIST changes: +Iohexol 300 - 100 ML VIAL IV ONE; +NS 100 ML IV SCH
== END ==
LOC: COL.RAD 07:30
DX: G93.89 Other specified disorders of brain (principal); I67.1 Cerebral aneurysm, nonruptured
CPT/HCPCS: Q9967